=== PATIENT | male | born 1945 | race Caucasian/White ===

== ENCOUNTER → 2021-05-13 | Day surgery (SDC) | payer OTHER ==
[~2021-05-13] VITALS: Ht 190.5 cm; Wt 122.5 kg
[~2021-05-13] MED LIST: ATORVASTATIN CA20 MG PO; DILTIAZEM 24HR120 M1 PO; EDARBI80 MG PO; LOPRESSOR50 MG PO; OMEPRAZOLE40 MG PO; XARELTO20 MG PO
[2021-05-13 09:17] LABS: BILIRUBIN - TOTAL 0.3 mg/dL (0.2-1.0); BUN/CREAT RATIO (CALC) 17.6 RATIO; CREATININE 1.02 mg/dL (0.67-1.17); GLOBULIN (CALCULATION) 3.2 g/dL; POTASSIUM 4.3 mmol/L (3.5-5.1); TOTAL PROTEIN 7.2 g/dL (6.4-8.2)
[2021-05-13 09:19] LABS: HCT 40.4 % (42.0-52.0); HGB 13.6 g/dl (13.2-18.0); MCH 31.2 pg (25.0-31.0); MCHC 33.7 g/dL (32.0-36.0); MCV 92.7 fL (78.0-100.0); MPV 10.7 fL (6.0-9.5); RBC 4.36 M/uL (4.70-6.00); RDW 12.6 % (11.5-14.0); WBC 7.4 K/uL (4.0-10.5)
== END | disposition home or self-care (01) ==
LOC: FAS 07:41
PROVIDERS: Surgery
DX: D12.0 Benign neoplasm of cecum (principal); I10 Essential (primary) hypertension; E78.00 Pure hypercholesterolemia, unspecified; K21.9 Gastro-esophageal reflux disease without esophagitis; Z95.818 Presence of other cardiac implants and grafts; Z79.01 Long term (current) use of anticoagulants; Z79.899 Other long term (current) drug therapy
CPT/HCPCS: 36415; 80053; J2250; J2704; J7120